=== PATIENT | female | born 2005 | race Caucasian/White ===

== ENCOUNTER 2023-08-20 17:54 | Outpatient (CLI) | payer OTHER, SELFPAY | END 2023-08-20 17:55 | disposition home or self-care (01) | PROVIDERS: Visit Provider Student in an Organized Health Care Education/Training Program | DX: S89.91XA Unspecified injury of right lower leg, initial encounter (principal); S89.92XA Unspecified injury of left lower leg, initial encounter; V43.61XA Car passenger injured in collision with sport utility vehicle in traffic accident, initial encounter; Y92.410 Unspecified street and highway as the place of occurrence of the external cause | CPT/HCPCS: A0998 ==